=== PATIENT | male | born 1960 | race Caucasian/White ===

== ENCOUNTER 2021-03-12 14:18 | Inpatient (IN) ==
[2021-03-12] MEDS ORDERED: dexAMETHasone**PF** 10 MG/ML VIAL IV ONE (14:24)
[2021-03-12] MEDS ORDERED: RACEPINEPHRINE 2.25% NEBU SOLN 0.5 ML VIAL NEB STA (14:24)
[2021-03-12] MEDS ORDERED: SODIUM CHLORIDE 0.9% 500 ML IV ONE (14:24)
[2021-03-12] MEDS ORDERED: RAPID SEQUENCE INDUCTION BAG ONE (14:31)
[2021-03-12] MEDS ORDERED: GLYCOPYRROLATE 0.2 MG/ML VIAL ONE ×2 (14:34→17:27)
[2021-03-12] MEDS ORDERED: LIDOCAINE 4% INH SOLN 4 ML BTL ONE ×2 (14:34→14:46)
[2021-03-12 14:50] LABS: Basophils # (auto) 0.01 K/uL (0-0.2); Basophils % (auto) 0.1 %; Eosinophils # (auto) 0.04 K/uL (0-0.5); Eosinophils % (auto) 0.4 %; Hematocrit (blood only) 38.4 % (42-52); Hemoglobin 13.8 g/dL (14.0-18.0); Immature Granulocytes # (auto) 0.01 K/uL (0.00-0.02); Immature Granulocytes % (auto) 0.1 %; Lymphocytes # (auto) 1.08 K/uL (1.2-3.4); Lymphocytes % (auto) 9.6 %; Mean Corpuscular Hemoglobin 30.6 pg (25-34); Mean Corpuscular Hgb Conc 35.9 g/dL (32-36); Mean Corpuscular Volume 85.1 fL (80-100); Mean Platelet Volume 10.3 fL (7.4-10.4); Monocytes # (auto) 0.66 K/uL (0.11-0.59); Monocytes % (auto) 5.9 %; Neutrophils # (auto) 9.42 K/uL (1.4-6.5); Neutrophils % (auto) 83.9 %; Platelet Count 203 K/uL (130-400); RDW Coefficient of Variation 13.8 % (11.5-14.5); Red Blood Count 4.51 M/uL (4.7-6.1); White Blood Count 11.22 K/uL (4.8-10.8)
--- NOTE | 2021-03-12 14:53 | XRay Report ---
SINGLE VIEW CHEST CLINICAL HISTORY: Atypical chest pain. FINDINGS: An AP, portable, upright chest radiograph is obtained. No prior studies are available for c omparison at the time of dictation. The cardiomediastinal silhouette is unremarkable. Airspace opaci ties are noted at the left lung base. A 9 mm indeterminate nodular density projects over the right mi dlung. No large pleural effusion or pneumothorax is seen. The skeletal structures are osteopenic. Fus ion hardware is noted in the lower cervical spine. There is chronic posttraumatic deformity of the ri ght clavicle as well as several healed right-sided rib fractures. IMPRESSION: 1. Airspace opacities at the left lung base are nonspecific and could represent scarring/atelectasis versus a mild infectious/inflammatory pneumonitis. Clinical correlation will be required. 2. A 9 mm nodular density projects over the right midlung and may be artifactual. Follow-up with a de dicated PA and lateral examination is recommended for further assessment. ACT 112: Negative or not required by law. Electronically signed by: Amor Mccarthy M.D. 03/12/2021 2:51 PM
[2021-03-12] MEDS ORDERED: PROPOFOL IV EMULSION 10 MG/ML 20 ML VIAL IV ONE ×2 (14:54→15:50)
[2021-03-12 15:00] LABS: INR 1.2 (0.9-1.1)
[2021-03-12] MEDS ORDERED: LIDOCAINE 5% OINT 30 GM TUBE ONE (15:00)
--- NOTE | 2021-03-12 15:02 | XRay Report ---
XR soft tissue neck CLINICAL HISTORY: acute stridor, known 4cm subglottic mass COMPARISON STUDY: No previous studies for comparison. FINDINGS: Postoperative findings and extensive multilevel degenerative changes within visualized port ions of the spine are incidentally noted. Epiglottis is normal. There is soft tissue fullness within the glottic and supraglottic region. This is suboptimally assessed by radiography but measures approx imately 5.1 cm in craniocaudal extension. This may reflect the known mass. IMPRESSION: Fullness within the region of the glottis with possible supraglottic and infraglottic ext ension, suboptimally assessed by radiography. This may reflect the known mass. Findings discussed wit cee Odonnell at time of dictation. ACT 112: Negative or not required by law. Electronically signed by: Toby Ryan M.D. 03/12/2021 3:01 PM
[2021-03-12 15:17] LABS: Troponin I < 0.03 ng/ml (0-0.04)
[2021-03-12] MEDS ORDERED: OXYMETAZOLINE 0.05% 30 ML BTL ONE (15:25)
[2021-03-12 15:33] LABS: Alanine Aminotransferase 20 U/L (7-52); Albumin Globulin Ratio 1.3 (0.9-2); Albumin Level 3.7 gm/dl (3.4-5.0); Alkaline Phosphatase 80 U/L (34-104); Anion Gap 9 (3-11); Aspartate Aminotransferase 25 U/L (13-39); BUN Creatinine Ratio 21.4 (10-20); Bilirubin,Total 0.5 mg/dl (0.2-1.0); Blood Urea Nitrogen 12 mg/dl (6-23); Calcium 8.9 mg/dl (8.5-10.1); Carbon Dioxide 30 mmol/L (21-32); Chloride 77 mmol/L (98-107); Creatinine Clr Calc Pharmacy 140.3 ml/min; Est GFR (African American) 130.3 ml/min; Est GFR (Non-African American) 112.4 ml/min; Globulin 2.8 gm/dl (2.5-4.0); Glucose 116 mg/dl (70-99(Fasting)); Lipase 17 U/L (11-82); Potassium 2.9 mmol/L (3.5-5.1); Total Protein 6.5 gm/dl (6.0-8.3)
[2021-03-12] MEDS ORDERED: BENZOCAINE/TETRACAIN/BUTAM 50 APPLN/5 GM CAN EXT ONE (15:41)
[2021-03-12] MEDS ORDERED: DEXAMETHASONE SOD INJ 10 MG/ML VIAL IV ONE (15:45)
--- NOTE | 2021-03-12 15:45 | Anesthesiology Progress Note ---
Date of Service March 12, 2021 Subjective I was called to the ER to evaluate the patient for a potential intubation. Upon arriving, the patient was visibly stridorous. The patient has a history of supraglottic/subglottic mass. The patient's vital signs were stable. The patient was able to answer questions appropriately, but he did have some difficulty breathing. I spoke to the patient about the potential intubation, but I told him I would abort if his airway was too difficult. The patient was given a lidocaine nebulizer and his airway was tropicalized with a cetacaine spray. The patient was given 0.2 mg of glycopyrrolate and 3mg of midazolam IV. The patient was breathing adequately during the procedure. I passed a fiberoptic scope without difficulty. Upon evaluation of the glottis, there was a pinhole opening of his glottis. It was at this time that I aborted the intubation attempt. I spoke with Dr. Ruiz, and I discussed the situation with him. The patient remained stridorous, but the patient was otherwise stable. The plan is for an awake tracheostomy. Physical Exam Vital Signs: Last Vital Signs Pulse 106 H 03/12/21 15:31 Resp 20 03/12/21 15:31 BP 130/95 03/12/21 15:31 Pulse Ox 99 03/12/21 15:31
[2021-03-12] MEDS ORDERED: LIDOCAINE 2%/EPINEPHRINE 1:100,000 20ML ONE (15:49)
[2021-03-12] MEDS ORDERED: fentaNYL citrate 100 MCG/2 ML VIAL ONE (15:50)
[2021-03-12] MEDS ORDERED: LIDOCAINE 2% LOCAL 50 ML VIAL ONE (15:50)
[2021-03-12] MEDS ORDERED: LIDOCAINE 2% 2 ML VIAL/AMP(20MG/ML) INFIL ONE (15:50)
[2021-03-12] MEDS ORDERED: MIDAZOLAM HCL 1 MG/ML 2ML VIAL ONE (15:50)
[2021-03-12] MEDS ORDERED: ePHEDrine sulfate 50 MG/ML AMP IV PRN (16:00)
[2021-03-12] MEDS ORDERED: fentaNYL citrate 100 MCG/2 ML VIAL IV PRN (16:00)
[2021-03-12] MEDS ORDERED: ATROPINE SULFATE 0.1 MG/ML 10ML SYR IV PRN (16:00)
--- NOTE | 2021-03-12 16:02 | History & Physical Report ---
Date of Service March 12, 2021 Assessment & Plan (1) Supraglottic mass: Plan: Per report, has a large, known supraglottic mass with recommendation of elective tracheostomy in January. - Patient going to OR emergently (2) Hyponatremia: Plan: Unknown baseline, but likely some level of chronicity given his inability to swallow and cancer. - Urine osms - Correct with assumption this is chronic. Per report, patient had fairly normal mentation prior to Versed for procedures, and I did not hear of any indication of seizure. (3) DVT prophylaxis: Plan: SCDs - Heparin per ICU team once surgery is complete History of Present Illness Primary Care Provider: [facility] 60yo M w/ unknown hx who presents with stridor. History is obtained from the ER physician as the patient underwent a fiberoptic look at his airway and received Versed for it. With the sedation and his difficulty breathing, no hx is possible from the patient. Per ER physician, the patient has been followed at the [facility] for a supraglottic mass of unknown type. Presumed to be malignancy. Reportedly, he was recommended to undergo elective tracheostomy in January, but surgery was either declined or delayed. He presents today with increasing difficulty breathing and was found to be stridorous. Anesthesiology used fiberoptic scope to look at his airway, but the airway was down to a "pinhole," and anesthesiology did not feel comfortable intubating outside of the OR with ENT present in case emergency tracheostomy needed to be placed. He is being taken to the OR at this time. 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 Unknown family medical history Social History Smoking Status: Current every day smoker Preferred Language: Citizen Of [place] Feels Safe at Home: Yes Review of Systems Review of Systems: Unobtainable due to cognitive status and Unobtainable due to reduced consciousness Physical Exam Constitutional: + acute distress and + disheveled Eyes: EOM intact bilaterally; no conjunctival abnormality ENMT: external ear and nose normal, oropharynx normal Neck: trachea midline, no thyromegaly normal visual inspection Respiratory: + respiratory distress, + tachypneic and + stridor Cardiovascular: Rate/Rhythm: regular rhythm and + tachycardic Heart Sounds: normal S1 and normal S2 Gastrointestinal (Abdomen): Inspection/Auscultation: abdomen normal to inspection; abdomen not distended Musculoskeletal: Head/Neck/Chest: normocephalic and head atraumatic Skin: no rashes, warm and dry Neurologic: moves all extremities and awake Psychiatric: Orientation: cooperative; + not alert Results & Data Results & Data ([facility]) Vital Signs (Past 12 Hours) Vital Signs Pulse Pulse Resp BP BP Pulse Ox 03/12/21 15:45 110 H 17 174/105 H 99 03/12/21 15:31 106 H 20 130/95 99 03/12/21 15:21 115 H 24 182/88 H 99 03/12/21 15:10 95 H 26 H 179/102 H 99 03/12/21 15:05 94 H 30 H 97 03/12/21 15:00 94 H 36 H 179/102 H 94 03/12/21 14:45 94 H 25 H 180/101 H 98 03/12/21 14:40 96 H 30 H 98 03/12/21 14:30 98 H 24 158/109 H 97 Code Status & VTE Plan VTE Prophylaxis Plan VTE Prophylaxis will be ordered: Yes PG Care Time/CCT Total # of Minutes Spent Total Time Spent with Patient: Total time spent is greater than 50% in coordination of care (as documented) at patient's floor/unit and/or counseling patient: Coding Level of Care Code 60379 Initial Inpt Care Lvl 3 Diagnoses Supraglottic mass J38.7 Hyponatremia E87.1 DVT prophylaxis Z29.9
--- NOTE | 2021-03-12 16:03 | Anesthesiology Consultation ---
Date of Service March 12, 2021 Assessment & Plan Chart Review Chart Review: Acceptable Risk for Surgery Consults Requested none ASA [id number] Proposed Anesthesia Anesthesia Type: MAC Risk / Benefits Reviewed With: PT / POA / Parent / Guardian, Accepts Plan and Informed Consent Obtained History Surgery Operation Date: 03/12/21 12:30 Proposed Procedures p Emergency Trach Insertion - Zuleika Ruiz MD Height/Weight Height: 5 ft 9 in Weight: 80 kg Allergies Allergy/AdvReac Type Severity Reaction Status Date / Time No Known Allergies Allergy Verified 04/01/02 18:24 NPO Date Last Intake of Fluids: 03/12/21 Time Last Intake of Fluids: 13:30 Last Intake of Fluids Comment: Protein Shake Past Medical History Medical History Unknown family medical history Exercise / Class Metabolic Activity II 4-5 Yardwork/Stairs/Walk up hill Past Anesthesia History No Hx of Anesthesia Complications and No Family Hx of Anesthesia Complications History of PONV No Hx of PONV and No Hx of Motion Sickness Social History Smoking Status: Current every day smoker Physical Exam Vital Signs Last Vital Signs Pulse 110 H 03/12/21 15:45 Resp 17 03/12/21 15:45 BP 174/105 H 03/12/21 15:45 Pulse Ox 99 03/12/21 15:45 Constitutional + acute distress ENMT Mouth: no dentition abnormality Thyromental Distance: > or= 3.5 Finger Breadths Mallampati Class: II Neck normal visual inspection Respiratory + respiratory distress Auscultation: + rhonchi Cardiovascular Rate/Rhythm: regular rate and regular rhythm Testing Laboratory Results 03/12/21 14:23 03/12/21 14:23 PT 12.0 Seconds (9.0-12.0) 03/12/21 14:23 INR 1.2 (0.9-1.1) H 03/12/21 14:23 Blood Type A Positive 03/12/21 14:47 Antibody Screen NEGATIVE 03/12/21 14:47 Electrocardiogram Date: 03/12/21 Normal sinus rhythm, rate 97 bpm Possible Left atrial enlargement T wave abnormality, consider anterior ischemia Prolonged QT Abnormal ECG No previous ECGs available Chest X-Ray Date: 03/12/21 IMPRESSION: 1. Airspace opacities at the left lung base are nonspecific and could represent scarring/atelectasis versus a mild infectious/inflammatory pneumonitis. Clinical correlation will be required. 2. A 9 mm nodular density projects over the right midlung and may be artifactual. Follow-up with a dedicated PA and lateral examination is recommend ed for further assessment. Other Testing XR soft tissue neck 03/12/21 IMPRESSION: Fullness within the region of the glottis with possible supraglottic and infraglottic extension, suboptimally assessed by radiography. This may reflect the known mass. Findings discussed with Dr. Odonnell at time of dictation.
--- NOTE | 2021-03-12 16:05 | Emergency Department Note ---
Impression & Plan Acute airway obstruction, Supraglottic mass, Hyponatremia, Stridor, Hypokalemia ED Provider Note NAME: OSCAR LOBO AGE: 60 SEX: M ARRIVES VIA: Ambulance INFORMANT: Patient, Marjorie Wilson, ex-, 1st contact [phone] ED PROVIDER(S): Gary Odonnell MD CHIEF COMPLAINT: Shortness of breath, laryngeal mass. 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 Per report the patient had O2 saturation 88% on room air improving to the upper 90s with 2 L nasal cannula. The patient reports that he has not had severity of stridor such as this in the past. The patient's ex- I spoke with on the phone with the patient's permission reports he may have had some intermittent "noisy breathing" but nothing as severe as was described today. 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 He is on Xarelto for history of blood clots but stopped this 2 days ago. I was ultimately able to discuss the patient's case with the local [place] clinic, midlevel provider who was able to access his imaging from January and she read the i mpression which described supraglottic mass, with evidence of extension into the thyroid cartilage. CT report was to be faxed and receipt was pending. She further elaborated that his specialist in [place] were attempting to have the patient come out for some time for his elective tracheostomy but this had been delayed. The patient had a biopsy confirming squamous cell carcinoma. She confirms that the patient is on Xarelto for history of PE/DVT. Upon arrival the patient was in acute respiratory distress with severe stridor and increased work of breathing with vital signs stable with heart rate in the 100s and blood pressure 170/100s. Patient was immediately treated with dexamethasone and racemic epinephrine. Anesthesia was immediately contacted. There is no ENT on-call today. Appreciate assistance by Anesthesia, Dr. Aponte who was at the bedside. Agrees that the patient needs emergent tracheostomy. Given concern for subglottic extension into the thyroid cartilage and possibly at the level of the cricothyroid membrane there is concern for attempting cricothyrotomy given no updated imaging of his mass. Thus, we did contact Dr. Ruiz, who was not on-call but case was reviewed with him and he agreed to come to the hospital as soon as he able given he had a full clinic schedule but could arrive within the next hour and a half and to update him if there is any acute decompensation. Given the patient was semi-stable, mentating normally and did not appear to be tiring he was monitored closely. Dr. Aponte did review risks and benefits for awake intubation/direct visualization with the understanding that if findings were not be amenable to intubation then this would be deferred. See Dr. Aponte's documentation for procedure details. Direct visualization did demonstrate the patient's tracheal mass which was present at the retinoids but extending distally. Airway appeared limited to a pinhole and so intubation was deferred. Dr. Ruiz was updated and agreed to come immediately to take the patient to the OR for emergent awake tracheostomy. Appreciate assistance. Chest x-ray was performed and demonstrates nonspecific airspace opacities of left lung base. Soft tissue x-ray of the neck demonstrates fullness within the region of the glottis with possible supraglottic and infraglottic extension consistent with the patient's known history, though further characterization is limited by plain film. Film was reviewed with radiology, Dr. Ryan. The patient received 500 of normal saline in addition to 10 mg x 2 (20mg total) of Decadron and racemic epinephrine. See further documentation per anesthesia for medications for laryngoscopy. WBC 11.2K nonspecific. H/H 13.8/30.4 without prior values for comparison. Platelets within normal limits. Chemistry without metabolic acidosis. Sodium was 116 with normal glucose however the patient is mentating normally. Potassi um 2.9 in the setting of tachypnea. LFTs unremarkable. Troponin negative/undetectable. Lipase was not elevated. COVID-19, RNA, KIMBERLI test was negative. Acute treatment for hyponatremia was deferred given the patient is mentating normally and the patient's critical airway was the priority pathology at this time. Case was d/w Dr. Rodríguez, [facility] hospitalist who will evaluate the patient for admission following OR. Case was also d/w Dr. Coats, ICU channel marketing specialist who will manage the patient following the OR. Triage Nursing notes reviewed and agree them. Prior medical records reviewed Vital Signs: reviewed and remarkable for tachycardia/tachypnea. Differential diagnosis: Reactive airway disease, pneumonia, pneumothorax, COPD, CHF, infections, cardiac ischemia, pulmonary embolism, musculoskeletal, gastrointestinal, as well as other pathologies. ER treatment provided: See below. Diagnostics interpreted by me: ECG: Normal sinus rhythm, 97 bpm, no ectopy, T wave abnormality, no overt ST elevation or depression, QTC 561, QRS 96. Artifact present. Cardiac Monitoring: An order for continuous cardiac monitoring was placed and demonstrated normal sinus rhythm, 97 bpm, no ectopy. Laboratory studies: See below Imaging studies: See below Consultation(s): Anesthesia, Dr. Aponte. ENT, Dr. Ruiz. [facility] hospitalist, Dr. Rodríguez. ICU channel marketing specialist, Dr. Coats. 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 Per report the patient had O2 saturation 88% on room air improving to the upper 90s with 2 L nasal cannula. The patient reports that he has not had severity of stridor such as this in the past. The patient's ex- I spoke with on the phone with the patient's permission reports he may have had some intermittent "noisy breathing" but nothing as severe as was described today. Unfortunately we did not have access to the patient's prior records but he did remember that he was told he had a 4- 1/2 cm subglotic mass. He is on Xarelto for history of blood clots but stopped this 2 days ago. I was ultimately able to discuss the patient's case with the local [facility], midlevel provider who was able to access his imaging from January and she read the impression which described supraglottic mass, with evidence of extension into the thyroid cartilage. CT report was to be faxed and receipt was pending. She further elaborated that his specialist in [place] were attempting to have the patient come out for some time for his elective tracheostomy but this had been delayed. The patient had a biopsy confirming squamous cell carcinoma. She confirms that the patient is on Xarelto for history of PE/DVT. ROS: See above HPI for pertinent positives & negatives. A total of 10 systems reviewed and were otherwise negative. PAST MEDICAL HISTORY:See Below PAST SURGICAL HISTORY:See Below FAMILY HISTORY:See Below SOCIAL HISTORY:See Below HOME MEDICATIONS:See Below ALLERGIES:See Below VITALS:See Below PHYSICAL EXAMINATION: GENERAL: Awake, alert, uncomfortable-appearing, in severe respiratory distress HENT: Normocephalic, atraumatic. Oropharynx with dry mucous membranes and otherwise unremarkable. EYES: Normal conjunctiva. Sclera non-icteric. NECK: Supple. No nuchal rigidity. FROM. No JVD. Severe inspiratory stridor. RESPIRATORY: Relatively clear to auscultation. Increased WOB with accessory muscle use. CARDIAC: Tachycardic rate, normal rhythm. Extremities warm and well perfused. Pulses equal. ABDOMEN: Soft, non-distended. No tenderness to palpation. No rebound or guarding. No masses. RECTAL: Deferred. MUSCULOSKELETAL: Chest examination reveals no tenderness. The back is symmetrical on inspection without obvious abnormality. There is no CVA tenderness to palpation. No joint edema. LOWER EXTREMITIES: Calves are equal size bilaterally and non-tender. No edema. No discoloration. NEURO: Normal sensorium. No sensory or motor deficits noted. SKIN: No rash or jaundice noted. ED COURSE: Critical Care: I have personally spent greater than 95 minutes of critical care time in the direct management of this patient. This includes bedside care, interpretation of diagnostic studies, and testing, discussion with consultants, patient, and family members, and other required patient management activities. This 95 minutes is in excess of all separately billable procedures. 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 Unknown family medical history Family History Other Family history non-contributory Social History Smoking Status: Current every day smoker Cigarettes Per Day: unknown; Preferred Language: Macedonian Communication Ability: Unable Performance Improvement Coordinator Required: No Current Living Situation Comment: unknown Feels Safe at Home: Yes Assistive Devices: Oxygen - Continuous Allergies Allergies Allergy/AdvReac Type Severity Reaction Status Date / Time No Known Allergies Allergy Verified 04/01/02 18:24 Results & Data (ED) Vital Signs Vital Signs - 24 hr 03/12/21 14:30 03/12/21 14:40 03/12/21 14:45 Pulse Rate 98 H 94 H Pulse Rate [Finger] 96 H Pulse Rate from SpO2 Sensor 96 H 93 H Pulse Rhythm [Finger] Pulse Strength [Finger] Respiratory Rate 24 30 H 25 H Respiratory Effort / Characteristics Spontaneous Labored Spontaneous Labored Respiratory Depth Deep Blood Pressure 158/109 H 180/101 H Blood Pressure [Left Arm] Blood Pressure Mean 125 127 Blood Pressure Mean [Left Arm] Blood Pressure Position Sitting Pulse Oximetry 97 98 98 Oxygen Delivery Method Nasal Cannula Nasal Cannula Oxymask Oxygen Flow Rate 4 4 15 Sepsis New/Unexplained Change in Mental Status N/A Sepsis Action Taken by Nursing No Action Required 03/12/21 15:00 03/12/21 15:05 03/12/21 15:10 Pulse Rate 94 H 94 H 94 H Pulse Rate [Finger] 94 H 95 H Pulse Rate from SpO2 Sensor 97 H 94 H 96 H Pulse Rhythm [Finger] Pulse Strength [Finger] Respiratory Rate 36 H 24 26 H Respiratory Effort / Characteristics Spontaneous Labored Respiratory Depth Blood Pressure 179/102 H Blood Pressure [Left Arm] 179/102 H Blood Pressure Mean 127 Blood Pressure Mean [Left Arm] 127 Blood Pressure Position Pulse Oximetry 94 97 99 Oxygen Delivery Method Oxymask Oxymask Nebulizer Oxygen Flow Rate 15 15 Sepsis New/Unexplained Change in Mental Status Sepsis Action Taken by Nursing 03/12/21 15:15 03/12/21 15:20 03/12/21 15:21 Pulse Rate 96 H 113 H Pulse Rate [Finger] 115 H Pulse Rate from SpO2 Sensor 96 H 114 H Pulse Rhythm [Finger] Pulse Strength [Finger] Respiratory Rate 40 H 24 24 Respiratory Effort / Characteristics Respiratory Depth Blood Pressure 182/88 H Blood Pressure [Left Arm] 182/88 H Blood Pressure Mean 119 Blood Pressure Mean [Left Arm] 119 Blood Pressure Position Pulse Oximetry 97 99 99 Oxygen Delivery Method Nasal Cannula Oxygen Flow Rate 10 Sepsis New/Unexplained Change in Mental Status Sepsis Action Taken by Nursing 03/12/21 15:25 03/12/21 15:30 03/12/21 15:31 Pulse Rate 122 H 107 H Pulse Rate [Finger] 106 H Pulse Rate from SpO2 Sensor 122 H 107 H Pulse Rhythm [Finger] Pulse Strength [Finger] Respiratory Rate 31 H 22 20 Respiratory Effort / Characteristics Respiratory Depth Blood Pressure 129/107 H Blood Pressure [Left Arm] 130/95 Blood Pressure Mean 114 Blood Pressure Mean [Left Arm] 106 Blood Pressure Position Pulse Oximetry 94 98 99 Oxygen Delivery Method Nasal Cannula Oxygen Flow Rate 10 Sepsis New/Unexplained Change in Mental Status Sepsis Action Taken by Nursing 03/12/21 15:32 03/12/21 15:35 03/12/21 15:40 Pulse Rate 104 H 103 H 118 H Pulse Rate [Finger] Pulse Rate from SpO2 Sensor 100 H 104 H Pulse Rhythm [Finger] Pulse Strength [Finger] Respiratory Rate 21 20 19 Respiratory Effort / Characteristics Respiratory Depth Blood Pressure 130/95 Blood Pressure [Left Arm] Blood Pressure Mean 106 Blood Pressure Mean [Left Arm] Blood Pressure Position Pulse Oximetry 96 99 Oxygen Delivery Method Oxygen Flow Rate Sepsis New/Unexplained Change in Mental Status Sepsis Action Taken by Nursing 03/12/21 15:45 Pulse Rate Pulse Rate [Finger] 110 H Pulse Rate from SpO2 Sensor Pulse Rhythm [Finger] Regular Pulse Strength [Finger] Normal Respiratory Rate 17 Respiratory Effort / Characteristics Respiratory Depth Blood Pressure Blood Pressure [Left Arm] 174/105 H Blood Pressure Mean Blood Pressure Mean [Left Arm] 128 Blood Pressure Position Pulse Oximetry 99 Oxygen Delivery Method Oxymask Oxygen Flow Rate 10 Sepsis New/Unexplained Change in Mental Status Sepsis Action Taken by Nursing Laboratory Data Attestation: I reviewed the patient's lab results. Result diagrams: 03/12/21 18:26 03/12/21 18:24 Lab Results 03/12/21 03/12/21 03/12/21 Range/Units 14:23 14:23 14:23 WBC 11.22 H (4.8-10.8) K/uL RBC 4.51 L (4.7-6.1) M/uL Hgb 13.8 L (14.0-18.0) g/dL Hct 38.4 L (42-52) % MCV 85.1 (80-100) fL MCH 30.6 (25-34) pg MCHC 35.9 (32-36) g/dL RDW Std Deviation 43.0 (36.4-46.3) fL RDW Coeff of Davie 13.8 (11.5-14.5) % Plt Count 203 (130-400) K/uL MPV 10.3 (7.4-10.4) fL Immature Gran % (Auto) 0.1 % Neut % (Auto) 83.9 % Lymph % (Auto) 9.6 % Blanco % (Auto) 5.9 % Eos % (Auto) 0.4 % Baso % (Auto) 0.1 % Neut # (Auto) 9.42 H (1.4-6.5) K/uL Lymph # (Auto) 1.08 L (1.2-3.4) K/uL Blanco # (Auto) 0.66 H (0.11-0.59) K/uL Eos # (Auto) 0.04 (0-0.5) K/uL Baso # (Auto) 0.01 (0-0.2) K/uL Immature Gran # (Auto) 0.01 (0.00-0.02) K/uL PT 12.0 (9.0-12.0) Seconds INR 1.2 H (0.9-1.1) Sodium 116 L* (136-145) mmol/L Potassium 2.9 L (3.5-5.1) mmol/L Chloride 77 L (98-107) mmol/L Carbon Dioxide 30 (21-32) mmol/L Anion Gap 9 (3-11) BUN 12 (6-23) mg/dl Creatinine 0.56 L (0.6-1.4) mg/dl Est Cr Clr Drug Dosing 140.3 ml/min Est GFR ( Amer) 130.3 ml/min Est GFR (Non-Af Amer) 112.4 ml/min BUN/Creatinine Ratio 21.4 H (10-20) Glucose 116 H (70-99(Fasting)) mg/dl Calcium 8.9 (8.5-10.1) mg/dl Total Bilirubin 0.5 (0.2-1.0) mg/dl AST 25 (13-39) U/L ALT 20 (7-52) U/L Alkaline Phosphatase 80 (34-104) U/L Troponin I < 0.03 (0-0.04) ng/ml Total Protein 6.5 (6.0-8.3) gm/dl Albumin 3.7 (3.4-5.0) gm/dl Globulin 2.8 (2.5-4.0) gm/dl Albumin/Globulin Ratio 1.3 (0.9-2) Lipase 17 (11-82) U/L SARS-CoV-2, RNA, NAAT (NEGATIVE) Blood Type Antibody Screen 03/12/21 03/12/21 Range/Units 14:40 14:47 WBC (4.8-10.8) K/uL RBC (4.7-6.1) M/uL Hgb (14.0-18.0) g/dL Hct (42-52) % MCV (80-100) fL MCH (25-34) pg MCHC (32-36) g/dL RDW Std Deviation (36.4-46.3) fL RDW Coeff of Davie (11.5-14.5) % Plt Count (130-400) K/uL MPV (7.4-10.4) fL Immature Gran % (Auto) % Neut % (Auto) % Lymph % (Auto) % Blanco % (Auto) % Eos % (Auto) % Baso % (Auto) % Neut # (Auto) (1.4-6.5) K/uL Lymph # (Auto) (1.2-3.4) K/uL Blanco # (Auto) (0.11-0.59) K/uL Eos # (Auto) (0-0.5) K/uL Baso # (Auto) (0-0.2) K/uL Immature Gran # (Auto) (0.00-0.02) K/uL PT (9.0-12.0) Seconds INR (0.9-1.1) Sodium (136-145) mmol/L Potassium (3.5-5.1) mmol/L Chloride (98-107) mmol/L Carbon Dioxide (21-32) mmol/L Anion Gap (3-11) BUN (6-23) mg/dl Creatinine (0.6-1.4) mg/dl Est Cr Clr Drug Dosing ml/min Est GFR ( Amer) ml/min Est GFR (Non-Af Amer) ml/min BUN/Creatinine Ratio (10-20) Glucose (70-99(Fasting)) mg/dl Calcium (8.5-10.1) mg/dl Total Bilirubin (0.2-1.0) mg/dl AST (13-39) U/L ALT (7-52) U/L Alkaline Phosphatase (34-104) U/L Troponin I (0-0.04) ng/ml Total Protein (6.0-8.3) gm/dl Albumin (3.4-5.0) gm/dl Globulin (2.5-4.0) gm/dl Albumin/Globulin Ratio (0.9-2) Lipase (11-82) U/L SARS-CoV-2, RNA, NAAT NEGATIVE (NEGATIVE) Blood Type A Positive Antibody Screen NEGATIVE Administered Medications Discontinued Medications Dexamethasone (Dexamethasone Sod Inj 10 Mg/Ml Vial) 10 mg IV ONE ONE Stop: 03/12/21 15:46 Last Admin: 03/12/21 15:30 Dose: 10 mg Documented by: [id number] Dexamethasone Sodium Phosphate (DexamethasonePf 10 Mg/Ml Vial) 10 mg IV NOW ONE Stop: 03/12/21 14:25 Last Admin: 03/12/21 14:29 Dose: 10 mg Documented by: [id number] Epinephrine (Racepinephrine 2.25% Nebu Soln 0.5 Ml Vial) 0.5 ml NEB NOW STA Stop: 03/12/21 14:25 Last Admin: 03/12/21 15:05 Dose: 0.5 ml Documented by: [id number] Glycopyrrolate (Glycopyrrolate 0.2 Mg/Ml Vial) Confirm Administered Dose 0.4 mg .ROUTE .STK-MED ONE Stop: 03/12/21 14:35 Last Admin: 03/12/21 18:17 Dose: Not Given Documented by: [id number] Sodium Chloride (Nss) 500 mls @ 999 mls/hr IV .Q31M ONE Stop: 03/12/21 14:54 Last Infusion: 03/12/21 15:02 Dose: 0 mls/hr Documented by: [id number] Admin: 03/12/21 14:34 Dose: 999 mls/hr Documented by: [id number] Cefazolin Sodium (Ancef 2000mg) 2,000 mg in 15 mls @ 3.75 mls/min IV ONCE ONE Stop: 03/12/21 16:44 Last Admin: 03/12/21 16:36 Dose: 3.75 mls/min Documented by: [id number] Lidocaine HCl (Lidocaine 4% Inh Soln 4 Ml Btl) Confirm Administered Dose 4 ml .ROUTE .[facility] ONE Stop: 03/12/21 14:35 Last Admin: 03/12/21 18:17 Dose: Not Given Documented by: [id number] Lidocaine HCl (Lidocaine 4% Inh Soln 4 Ml Btl) Confirm Administered Dose 4 ml .ROUTE .[facility] ONE Stop: 03/12/21 14:47 Last Admin: 03/12/21 18:17 Dose: Not Given Documented by: [id number] Lidocaine HCl (Lidocaine 2% Local 50 Ml Vial) Confirm Administered Dose 50 ml .ROUTE .[facility] ONE Stop: 03/12/21 15:51 Last Admin: 03/12/21 17:13 Dose: Not Given Documented by: [id number] Lidocaine/Epinephrine (Lidocaine 2%/Epinephrine 1:100,000 20ml) Confirm Administered Dose 20 ml .ROUTE .[facility] ONE Stop: 03/12/21 15:50 Last Admin: 03/12/21 17:13 Dose: 15 ml Documented by: [id number] Miscellaneous (Rapid Sequence Induction Bag) Confirm Administered Dose 1 ea .ROUTE .[facility] ONE Stop: 03/12/21 14:32 Last Admin: 03/12/21 18:17 Dose: Not Given Documented by: [id number] Oxymetazoline HCl (Oxymetazoline 0.05% 30 Ml Btl) Confirm Administered Dose 150 sprays .ROUTE .[facility] ONE Stop: 03/12/21 15:26 Last Admin: 03/12/21 18:17 Dose: Not Given Documented by: [id number] Propofol (Propofol Iv Emulsion 10 Mg/Ml 20 Ml Vial) Confirm Administered Dose 200 mg IV .[facility] ONE Stop: 03/12/21 14:55 Last Admin: 03/12/21 18:17 Dose: Not Given Documented by: [id number] Imaging Data Radiologist's Impression: Chest X-Ray 03/12/21 14:25 SINGLE VIEW CHEST CLINICAL HISTORY: Atypical chest pain. FINDINGS: An AP, portable, upright chest radiograph is obtained. No prior studies are available for comparison at the time of dictation. The cardiomediastinal silhouette is unremarkable. Airspace opacities are noted at the left lung base. A 9 mm indeterminate nodular density projects over the right midlung. No large pleural effusion or pneumothorax is seen. The skeletal structures are osteopenic. Fusion hardware is noted in the lower cervical spine. There is chronic posttraumatic deformity of the right clavicle as well as several healed right-sided rib fractures. IMPRESSION: 1. Airspace opacities at the left lung base are nonspecific and could represent scarring/atelectasis versus a mild infectious/inflammatory pneumonitis. Clinical correlation will be required. 2. A 9 mm nodular density projects over the right midlung and may be artifac tual. Follow-up with a dedicated PA and lateral examination is recommended for further assessment. ACT 112: Negative or not required by law. Electronically signed by: Amor Mccarthy M.D. 03/12/2021 2:51 PM Soft Tissue Neck X-Ray 03/12/21 14:36 XR soft tissue neck CLINICAL HISTORY: acute stridor, known 4cm subglottic mass COMPARISON STUDY: No previous studies for comparison. FINDINGS: Postoperative findings and extensive multilevel degenerative changes within visualized portions of the spine are incidentally noted. Epiglottis is normal. There is soft tissue fullness within the glottic and supraglottic region. This is suboptimally assessed by radiography but measures approximately 5.1 cm in craniocaudal extension. This may reflect the known mass. IMPRESSION: Fullness within the region of the glottis with possible supraglottic and infraglottic extension, suboptimally assessed by radiography. This may reflect the known mass. Findings discussed with Dr. Odonnell at time of dictation. ACT 112: Negative or not required by law. Electronically signed by: Toby Ryan M.D. 03/12/2021 3:01 PM Discharge Plan Visit Data Chief Complaint: Respiratory Problems ED Provider: Gary Odonnell Discharge Problem: Acute airway obstruction, Supraglottic mass, Hyponatremia, Stridor, Hypokalemia Patient Disposition: Admitted As Inpatient Discharge Instructions Interventions: ED Discharge Assessment Last Done: 03/12/21 15:50
--- NOTE | 2021-03-12 16:29 | History & Physical Report ---
Date of Service March 12, 2021 Assessment & Plan (1) Supraglottic mass: Plan: Emergency tracheostomy under local, then direct laryngoscopy. History of Present Illness Chief Complaint: Stridor. 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 Primary Care Provider: [facility] Stridor, for emergency tracheostomy Allergies Allergy/AdvReac Type Severity Reaction Status Date / Time No Known Allergies Allergy Verified 04/01/02 18:24 Past Med/Surg History Medical History Unknown family medical history Social History Smoking Status: Current every day smoker Preferred Language: Danish Feels Safe at Home: Yes Physical Exam Constitutional: + acute distress (Stridor), + cachectic and + frail appearing Eyes: PERRL, conjunctivae normal, anicteric sclerae ENMT: external ear and nose normal, oropharynx normal Respiratory: Stridor Cardiovascular: RRR, no murmur, no edema Results & Data Results & Data ([facility]) Vital Signs (Past 12 Hours) Vital Signs Pulse Pulse Resp BP BP Pulse Ox 03/12/21 15:45 110 H 17 174/105 H 99 03/12/21 15:31 106 H 20 130/95 99 03/12/21 15:21 115 H 24 182/88 H 99 03/12/21 15:10 95 H 26 H 179/102 H 99 03/12/21 15:05 94 H 30 H 97 03/12/21 15:00 94 H 36 H 179/102 H 94 03/12/21 14:45 94 H 25 H 180/101 H 98 03/12/21 14:40 96 H 30 H 98 03/12/21 14:30 98 H 24 158/109 H 97 Code Status & VTE Plan VTE Prophylaxis Plan VTE Prophylaxis will be ordered: Yes PG Care Time/CCT Total # of Minutes Spent Total Time Spent with Patient: Total time spent is greater than 50% in coordination of care (as documented) at patient's floor/unit and/or counseling patient: Coding Level of Care Code None Diagnoses Supraglottic mass J38.7
[2021-03-12] MEDS ORDERED: ceFAZolin 330 MG/ML 1 GM VIAL ONE (16:35)
[2021-03-12] MEDS ORDERED: ceFAZolin 2000MG 2,000 MG/15 ML SYR IV ONE (16:41)
--- NOTE | 2021-03-12 16:59 | Electrocardiogram Report ---
Test Reason : Blood Pressure : / mmHG Vent. Rate : 097 BPM Atrial Rate : 097 BPM P-R Int : 120 ms QRS Dur : 096 ms QT Int : 442 ms P-R-T Axes : 075 028 034 degrees QTc Int : 561 ms Poor data quality, interpretation may be adversely affected Normal sinus rhythm Possible Left atrial enlargement T wave abnormality, consider anterior ischemia Prolonged QT Abnormal ECG No previous ECGs available Confirmed by Wilver Plaza ([id number]) on 03/12/2021 4:59:06 PM Referred By: REFERRED SELF Confirmed By:Clemente Plaza
[2021-03-12] MEDS ORDERED: NEOSTIGMINE METHYLSULFATE 1 MG/ML 10ML VIAL ONE (17:27)
[2021-03-12] MEDS ORDERED: MIDAZOLAM HCL 5 MG/ML VIAL IV ONE (17:41)
[2021-03-12] MEDS ORDERED: GLYCOPYRROLATE 0.2 MG/ML VIAL IM ONE (17:41)
--- NOTE | 2021-03-12 18:03 | Anesthesiology Progress Note ---
Date of Service March 12, 2021 Anesthesia Post Procedure Vital Signs Vital Signs: Temp Pulse Pulse Resp BP BP Pulse Ox 03/12/21 18:00 75 16 122/73 96 03/12/21 17:55 74 17 119/70 96 03/12/21 17:50 71 16 112/68 97 03/12/21 17:45 98.4 F 74 16 104/70 99 03/12/21 17:42 74 13 107/64 100 03/12/21 17:41 100 03/12/21 15:45 110 H 17 174/105 H 99 03/12/21 15:40 118 H 19 03/12/21 15:35 103 H 20 99 03/12/21 15:32 104 H 21 130/95 96 03/12/21 15:31 106 H 20 130/95 99 03/12/21 15:30 107 H 22 129/107 H 98 03/12/21 15:25 122 H 31 H 94 03/12/21 15:21 115 H 24 182/88 H 99 03/12/21 15:20 113 H 24 99 03/12/21 15:15 96 H 40 H 182/88 H 97 03/12/21 15:10 94 H 95 H 26 H 179/102 H 99 03/12/21 15:05 94 H 94 H 24 97 03/12/21 15:00 94 H 36 H 179/102 H 94 03/12/21 14:45 94 H 25 H 180/101 H 98 03/12/21 14:40 96 H 30 H 98 03/12/21 14:30 98 H 24 158/109 H 97 Transfer of Care Handoff Completed per policy Notes Mental Status: alert / awake / arousable and participated in evaluation Patient Amnestic to Procedure: Yes Nausea / Vomiting: adequately controlled Pain: adequately controlled Airway Patency, RR, SpO2: stable & adequate BP & HR: stable & adequate Hydration State: stable & adequate Anesthetic Complications: no major complications apparent and Pt Satisfied with anesthetic care Notes: Patient transported to the ICU with O2 and monitor. Report was given to ICU team. Care was transferred to the ICU team.
[2021-03-12] MEDS ORDERED: ONDANSETRON INJ 2 MG/ML 2 ML VIAL IV PRN (18:20)
[2021-03-12 18:36] LABS: Hemoglobin 12.5 g/dL (14.0-18.0); Mean Corpuscular Hemoglobin 30.4 pg (25-34); Mean Corpuscular Hgb Conc 35.7 g/dL (32-36); Mean Corpuscular Volume 85.2 fL (80-100); Platelet Count 171 K/uL (130-400); RDW Coefficient of Variation 13.8 % (11.5-14.5); Red Blood Count 4.11 M/uL (4.7-6.1); White Blood Count 7.79 K/uL (4.8-10.8)
--- NOTE | 2021-03-12 18:39 | Operative Report ---
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 He was prepped with ChloraPrep. He was anesthetized using local anesthetic of 2% Xylocaine with 1-100,000 strength injection. The supra sternal incision was made using the 15 blade and carried down through the skin and subcutaneous layer using the 15 blade. Hemostasis was controlled using the Bovie. Midline dissection was performed. Thyroid isthmus was encountered. This was dissected free using the hemostat and then divided using the Bovie. The first tracheal ring was retracted superiorly. The stay suture was placed through the third tracheal ring using 2-0 Prolene. The incision was made between the second and the third tracheal ring and carried laterally and then vertically down both sides of the third drain. Trach tower climber was placed and a #8 cuffed Shiley tracheostomy tube was placed. After confirmation of tidal volume and CO2 general anesthesia was induced. At this point direct laryngoscopy was performed using the Dedo laryngoscope visualizing the epiglottis vallecula and piriform sinus areas which were all normal. There was a bulge from the right side of the larynx, smooth mucosal covered. However upon further exploration an ulcerative lesion was found in the right ventricle extending laterally into the right supraglottic space. 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 No evidence of subglottic mass. He was awakened and taken to the intensive care unit. I attest to the content of the Intraoperative Record and any orders documented therein. Any exceptions are noted below.
[2021-03-12 19:28] LABS: Albumin Globulin Ratio 1.3 (0.9-2); Albumin Level 3.2 gm/dl (3.4-5.0); BUN Creatinine Ratio 21.2 (10-20); Bilirubin,Total 0.4 mg/dl (0.2-1.0); Calcium 8.4 mg/dl (8.5-10.1); Creatinine Clr Calc Pharmacy 151.1 ml/min; Est GFR (African American) 134.3 ml/min; Est GFR (Non-African American) 115.9 ml/min; Globulin 2.5 gm/dl (2.5-4.0); Magnesium 1.5 mg/dl (1.7-2.4); Phosphorus 2.5 mg/dl (2.5-4.9); Potassium 3.2 mmol/L (3.5-5.1); Total Protein 5.7 gm/dl (6.0-8.3)
--- NOTE | 2021-03-12 20:03 | Critical Care Consultation ---
Date of Consultation March 12, 2021 Assessment & Plan (1) Acute airway obstruction: (2) Stridor: Reason Critically Ill: 60-year-old male with airway compromise secondary to subglottic mass requiring emergent tracheostomy placement for airway protection. NEURO - * CAM ICU: NEGATIVE CARDIAC/VASCULAR - * Blood pressure more maintained at this time. * Monitor on telemetry. RESPIRATORY - * Difficult airway with airway compromise secondary to subglottic mass: * Status post emergent tracheostomy placement. * Currently on CPAP settings. * Hope for ability to place on trach collar early tomorrow. GI/NUTRITION - * Will need swallow evaluation when appropriate. RENAL/LYTES - * Hyponatremia: * Question degree of hypovolemia, possible SIADH in the setting of CA * Initial slight improvement from 16-19. * Will start with gentle normal saline at a rate of 80 mL's per hour. * Serial PRPs to monitor rate of rise. Aim for increase of sodium 6-8 mmol/L over the first 24 hours. * Aim for slow correction to prevent ODS. - * Griffin in place - Strict I&Os. ENDO - * No h/o DM * BSGs per unit protocol. ISS --> gtt per unit policy. HEME - * Stable H&H ID - * No concerns for infection. LINES/IV ACCESS - * PIVs x2 * Griffin * Trach DVT PROPHYLAXIS - * Hold s/p trach placement. * SCDs I have personally spent 35 minutes of critical care time in the direct management of this patient. This is a life/limb threatening event. This includes time spent evaluating patient, direct bedside care, chart review, placing orders, interpretation of diagnostic studies, discussion with consultants, patient, and family members, as well as other required patient management activities. This time is exclusive of all separately billable procedures, and teaching time and separate from and in addition to any other critical care service time. Thank you for allowing us to participate in the care of this patient. Please refer to my attending physician's documentation for any further recommendations. History of Present Illness Attending Physician: Zuleika Ruiz MD History of Present Illness Patient is a 60-year-old male with an undocumented past medical history who is been struggling with stridor secondary to subglottic mass who presented to the emergency department with increasing stridor and concerns for airway compromise. The patient was scheduled to have a tracheostomy performed at the [facility] in [place] tomorrow, however he was having increasing difficulty with breathing so he elected to present to the outpatient [facility] office. He was seen and had increasing stridor so was directed to the emergency department for definitive management. On arrival, the patient was noted to be stridorous. ENT was consulted after anesthesia did visualize airway as pinpoint without possibility of passing ET tube. Patient was taken to the operating suite for awake tracheostomy tube placement. On evaluation in the ICU, the patient is awake, alert, and oriented. He is able to communicate with writing. He denies complaints of pain at this time. He does report that he has occasional coughing, but no chest discomfort. History limited secondary to do tracheostomy placement. 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 GENERAL - 60-year-old male appearing his stated age who is in no acute distress. Communicates with writing only. HEAD - NC/AT. EYES - PERRL with EOMI bilaterally. Sclera anicteric. Palpebral conjunctiva pink and moist with no injection noted. EARS - No deformities of external structures noted on gross examination bilaterally. NOSE - Midline and without cyanosis. No epistaxis or purulent drainage noted. NECK - New tracheostomy tube in place. FROM of the neck otherwise. LUNGS - Chest wall symmetric without accessory muscle use, intercostals retractions, or central cyanosis. Normal vesicular breath sounds CTA B/L. No wheezes, rales, or rhonchi appreciated. CARDIAC - RRR with S1/S2. No murmur, rubs, or gallops appreciated. No reproducible tenderness to palpation appreciated over the anterior chest wall. ABDOMEN - Abdominal contour flat without pulsations or visible masses. BS normoactive all four quadrants. No tenderness, palpable masses, hepatosplenomegaly, or ascites noted. EXTREMITIES - No clubbing or peripheral cyanosis. No pretibial edema present. +3/5 radial and dorsalis pedis pulses palpated throughout. +5/5 strength noted in UE/LE bilaterally. NEUROLOGIC - Cranial nerves II through XII grossly intact. PSYCH - A&Ox3 and cooperates fully with examiner. Able to communicate with writing. Results & Data Results & Data ([facility]) Vital Signs (Past 12 Hours) Vital Signs Temp Pulse Pulse Pulse Resp BP BP 03/12/21 19:00 36.7 C 78 80 17 131/86 131/86 03/12/21 18:55 78 18 144/91 H 03/12/21 18:50 78 15 137/90 03/12/21 18:40 80 17 135/90 03/12/21 18:30 78 18 03/12/21 18:20 36.9 C 76 19 119/77 03/12/21 18:15 36.9 C 76 17 123/77 03/12/21 18:10 76 17 121/74 03/12/21 18:05 76 19 120/75 03/12/21 18:00 75 16 122/73 03/12/21 17:55 74 17 119/70 03/12/21 17:50 71 16 112/68 03/12/21 17:45 36.9 C 74 16 104/70 03/12/21 17:42 74 13 107/64 03/12/21 17:41 03/12/21 15:45 110 H 17 174/105 H 03/12/21 15:40 118 H 19 03/12/21 15:35 103 H 20 03/12/21 15:32 104 H 21 130/95 03/12/21 15:31 106 H 20 130/95 03/12/21 15:30 107 H 22 129/107 H 03/12/21 15:25 122 H 31 H 03/12/21 15:21 115 H 24 182/88 H 03/12/21 15:20 113 H 24 03/12/21 15:15 96 H 40 H 182/88 H 03/12/21 15:10 94 H 95 H 26 H 179/102 H 03/12/21 15:05 94 H 94 H 24 03/12/21 15:00 94 H 36 H 179/102 H 03/12/21 14:45 94 H 25 H 180/101 H 03/12/21 14:40 96 H 30 H 03/12/21 14:30 98 H 24 158/109 H Pulse Ox 03/12/21 19:00 96 03/12/21 18:55 96 03/12/21 18:50 96 03/12/21 18:40 96 03/12/21 18:30 96 03/12/21 18:20 96 03/12/21 18:15 96 03/12/21 18:10 96 03/12/21 18:05 96 03/12/21 18:00 96 03/12/21 17:55 96 03/12/21 17:50 97 03/12/21 17:45 99 03/12/21 17:42 100 03/12/21 17:41 100 03/12/21 15:45 99 03/12/21 15:40 03/12/21 15:35 99 03/12/21 15:32 96 03/12/21 15:31 99 03/12/21 15:30 98 03/12/21 15:25 94 03/12/21 15:21 99 03/12/21 15:20 99 03/12/21 15:15 97 03/12/21 15:10 99 03/12/21 15:05 97 03/12/21 15:00 94 03/12/21 14:45 98 03/12/21 14:40 98 03/12/21 14:30 97 Coding Level of Care Code Critical Care 1st 30-74 mins Diagnoses Acute airway obstruction J98.8 Stridor R06.1 Time Spent (min) 35
[2021-03-12] MEDS ORDERED: MAGNESIUM SULFATE / D5W 1 GM/100 ML BAG IV ONE (20:04)
[2021-03-12] MEDS ORDERED: NSS + 20MEQ KCL 20 MEQ/1,000 ML BAG IV SCH (20:15)
[2021-03-12 23:58] LABS: BUN Creatinine Ratio 16.1 (10-20); Calcium 9.4 mg/dl (8.5-10.1); Creatinine Clr Calc Pharmacy 126.7 ml/min; Est GFR (Non-African American) 107.8 ml/min; Potassium 4.1 mmol/L (3.5-5.1)
[2021-03-13] MEDS ORDERED: DEXTROSE 5% 250 ML IV SCH (00:30)
[2021-03-13 00:56] LABS: Appearance Urine Clear (Clear); Bacteria Urine Automated Negative (Negative); Bilirubin Urine Negative (Negative); Blood Urine 3+ (Negative); Cast Urine Automated 0 /lpf (0-5); Color Urine Yellow; Epithelial Cell Urine Auto 0-5 /lpf (0-5); Glucose Urine UA Negative (Negative); Ketones Urine Trace (Negative); Leukocyte Esterase Urine Negative (Negative); Nitrite Urine Negative (Negative); Protein Urine Negative (Negative); RBC Urine Automated 0-4 /hpf (0-4); Specific Gravity Urine 1.003 (1.000-1.030); Urobilinogen Urine Negative (Negative); WBC Urine Automated 0 /hpf (0-5)
[2021-03-13] MEDS ORDERED: DESMOPRESSIN ACETATE 1 MCG in SYRINGE 0 ML IV SCH (01:00)
[2021-03-13 02:51] LABS: BUN Creatinine Ratio 13.7 (10-20); Calcium 9.4 mg/dl (8.5-10.1); Creatinine Clr Calc Pharmacy 107.6 ml/min; Est GFR (African American) 116.9 ml/min; Est GFR (Non-African American) 100.8 ml/min; Phosphorus 1.6 mg/dl (2.5-4.9); Potassium 3.9 mmol/L (3.5-5.1)
[2021-03-13] MEDS ORDERED: DEXTROSE 5% 500 ML IV SCH (04:15)
[2021-03-13] MEDS: DESMOPRESSIN ACETATE 2 MCG in SYRINGE 0 ML IV SCH ×2 (04:39→12:11)
[2021-03-13 06:21] LABS: Hematocrit (blood only) 37.2 % (42-52); Hemoglobin 13.1 g/dL (14.0-18.0); Mean Corpuscular Hemoglobin 30.3 pg (25-34); Mean Corpuscular Hgb Conc 35.2 g/dL (32-36); Mean Corpuscular Volume 85.9 fL (80-100); Mean Platelet Volume 10.4 fL (7.4-10.4); Platelet Count 179 K/uL (130-400); RDW Coefficient of Variation 14.2 % (11.5-14.5); RDW Standard Deviation 44.5 fL (36.4-46.3); Red Blood Count 4.33 M/uL (4.7-6.1); White Blood Count 9.31 K/uL (4.8-10.8)
[2021-03-13 06:48] LABS: BUN Creatinine Ratio 14.9 (10-20); Calcium 8.8 mg/dl (8.5-10.1); Creatinine Clr Calc Pharmacy 117.2 ml/min; Est GFR (Non-African American) 104.4 ml/min; Magnesium 1.8 mg/dl (1.7-2.4); Phosphorus 1.6 mg/dl (2.5-4.9); Potassium 4.1 mmol/L (3.5-5.1)
--- NOTE | 2021-03-13 13:25 | Hospitalist Progress Note ---
Date of Service March 13, 2021 Assessment & Plan (1) Supraglottic mass: Plan: Per report, has a large, known supraglottic mass with recommendation of elective tracheostomy in January. - Patient s/p tracheostomy 03/12/[address] Ruiz, recovered in ICU with some vent support now on blow by humidified trache collar Per the OR report "direct laryngoscopy was performed using the Dedo laryngoscope visualizing the epiglottis vallecula and piriform sinus areas which were all normal. There was a bulge from the right side of the larynx, smooth mucosal covered. However upon further exploration an ulcerative lesion was found in the right ventricle extending laterally into the right supraglottic space. 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 No evidence of subglottic mass." Pt states was not eating much solid food pre hospital, will have speech consult to determine if able to take po nutrition Initially the patient had decided he wanted to try chemotherapy and radiation according to his primary care provider at the [facility] however after discussions with speech and also myself the patient seems more convinced that he would wish to proceed with consideration of laryngectomy at [facility]. Reach back out to the [facility] clinic to try to coordinate a transfer of care in the meantime we will continue to stabilize the patient evaluate his swallowing function and replete his abnormal electrolytes (2) Hyponatremia: Plan: Chronic , will follow with hydration and feeding tubes phosphorus is low will replete with sodium phosphate (3) Bladder mass: Plan: According to the [facility] the patient reportedly has a bladder mass has not been yet worked up we will check a bladder urine cytology (4) DVT prophylaxis: Plan: SCDs - Heparin per ICU team once surgery is complete Admission and Anticipated Discharge Date Admission Date: March 12, 2021 Subjective pt is s/p tracheostomy, cannot speak and communicates by mouthing words and writing, now has desire to go to [facility] for possible laryngectomy, will be evaluated by speech here in the meantime to see if functioning swallowing Review of Systems Review of Systems: Mild to moderate distress and fatigue no headache, no visual changes Has not been able to swallow any other liquids for a few weeks prior to being ill no chest pain, pressure or palpitations Resolved shortness of breath from his tracheostomy now with some productive cough no abdominal pain, nausea or vomiting, diarrhea or constipation no dysuria, hematuria or frequency no focal joint pain or swelling no back pain, CVA tenderness or radicular pain no bruising, bleeding or rashes no focal signs of weakness or numbness or altered sensation no complaints of anxiety or depression.. Physical Exam Physical Exam: The patient appeared thin and chronically ill Vital signs as documented. Head exam is normocephalic atraumatic Neck is with tracheostomy in place with some mucus coming out of it Bilateral breath sounds worse at the bases Cardiac exam, Rhythm is regular.. No murmurs, rubs or gallops. Abdominal exam reveals normal bowel sounds, soft non tender, no masses Extremities are nonedematous and both pedal pulses are present Neurologic exam is alert and oriented, no focal loss of strength or sensation Skin is without bruises or rashes Psychologically is without concerns for anxiety or depression.. Results & Data Results & Data ([facility]) Vital Signs (Past 12 Hours) Vital Signs Temp Pulse Pulse Resp BP Pulse Ox 03/13/21 13:00 71 18 129/86 97 03/13/21 12:00 72 18 136/82 97 03/13/21 11:00 74 17 139/88 96 03/13/21 10:00 89 19 139/87 99 03/13/21 09:00 83 30 H 160/96 H 94 03/13/21 08:33 82 16 98 03/13/21 08:30 75 18 134/88 96 03/13/21 08:00 98.8 F 72 12 131/88 95 03/13/21 07:30 66 9 L 131/89 98 03/13/21 07:00 66 17 132/86 98 03/13/21 06:57 62 13 98 03/13/21 06:00 69 16 129/86 96 03/13/21 05:30 69 22 127/84 97 03/13/21 05:00 71 15 133/84 98 03/13/21 04:30 70 13 123/85 98 03/13/21 04:07 73 16 98 03/13/21 04:00 98.2 F 74 12 126/91 98 03/13/21 03:30 75 12 143/92 H 98 03/13/21 03:00 73 12 115/81 98 03/13/21 02:30 73 12 129/85 98 03/13/21 01:30 74 15 144/92 H 99 PG Care Time/CCT Total # of Minutes Spent Total Time Spent with Patient: Total time spent is greater than 50% in coordination of care (as documented) at patient's floor/unit and/or counseling patient: Coding Level of Care Code 75549 Subseq Hosp Care Lvl 2 Diagnoses Supraglottic mass J38.7 Hyponatremia E87.1 DVT prophylaxis Z29.9 Bladder mass N32.89
[2021-03-13] MEDS ORDERED: SODIUM PHOSPHATE 3 MMOL/1 ML INFUSION IV STA (13:37)
[2021-03-13] MEDS ORDERED: SODIUM PHOSPHATE 15 MMOL in DEXTROSE 5% 250 ML IV ONE (14:15)
[2021-03-13] MEDS ORDERED: MoRPHine SULFATE 2 MG/ML CARP IV PRN (15:22)
[2021-03-13] MEDS ORDERED: ONDANSETRON INJ 2 MG/ML 2 ML VIAL IV PRN (15:22)
[2021-03-13] MEDS ORDERED: LORazepam 0.5 MG/1 ML VIAL IV PRN (15:22)
--- NOTE | 2021-03-13 16:28 | Critical Care Progress Note ---
Date of Service March 13, 2021 Assessment & Plan (1) Acute airway obstruction: (2) Supraglottic mass: (3) Hyponatremia: Plan: Acute airway obstruction: Stridor: Reason Critically Ill: 60-year-old male with airway compromise secondary to subglottic mass requiring emergent tracheostomy placement for airway protection. NEURO - * CAM ICU: NEGATIVE CARDIAC/VASCULAR - * Blood pressure more maintained at this time. * Monitor on telemetry. RESPIRATORY - * Difficult airway with airway compromise secondary to subglottic mass: * * Status post emergent tracheostomy placement. * Currently on trach collar GI/NUTRITION - * Will need swallow evaluation when appropriate. RENAL/LYTES - * Hyponatremia: * Recheck sodium now - * Griffin in place - Strict I&Os. ENDO - * No h/o DM * * BSGs per unit protocol. ISS --> gtt per unit policy. HEME - * Stable H&H ID - * No concerns for infection. LINES/IV ACCESS - * PIVs x2 * Griffin * Trach DVT PROPHYLAXIS - * Hold s/p trach placement. * SCDs Ok to transfer out of the icu Admission and Anticipated Discharge Date Admission Date: March 12, 2021 Subjective No significant events this morning. Tolerating tracheostomy well. Currently on trach collar trials. Review of Systems Review of Systems: All systems reviewed & are unremarkable except as noted in HPI & below Physical Exam Physical Exam: VITAL SIGNS - Vital signs and nursing notes were reviewed. GENERAL - 60-year-old male appearing his stated age who is in no acute distress. Communicates with writing only. HEAD - NC/AT. EYES - PERRL with EOMI bilaterally. Sclera anicteric. Palpebral conjunctiva pink and moist with no injection noted. EARS - No deformities of external structures noted on gross examination bilaterally. NOSE - Midline and without cyanosis. No epistaxis or purulent drainage noted. NECK - New tracheostomy tube in place. FROM of the neck otherwise. LUNGS - Chest wall symmetric without accessory muscle use, intercostals retractions, or central cyanosis. Normal vesicular breath sounds CTA B/L. No wheezes, rales, or rhonchi appreciated. CARDIAC - RRR with S1/S2. No murmur, rubs, or gallops appreciated. No reproducible tenderness to palpation appreciated over the anterior chest wall. ABDOMEN - Abdominal contour flat without pulsations or visible masses. BS normoactive all four quadrants. No tenderness, palpable masses, hepatosplenomegaly, or ascites noted. EXTREMITIES - No clubbing or peripheral cyanosis. No pretibial edema present. +3/5 radial and dorsalis pedis pulses palpated throughout. +5/5 strength noted in UE/LE bilaterally. NEUROLOGIC - Cranial nerves II through XII grossly intact. PSYCH - A&Ox3 and cooperates fully with examiner. Able to communicate with writing. Results & Data Results & Data ([facility]) Vital Signs (Past 12 Hours) Vital Signs Temp Pulse Pulse Resp BP Pulse Ox 03/13/21 15:08 37.0 C 03/13/21 15:05 80 16 150/80 H 98 03/13/21 15:00 83 22 03/13/21 14:00 80 19 132/79 94 03/13/21 13:00 71 18 129/86 97 03/13/21 12:00 72 18 136/82 97 03/13/21 11:00 74 17 139/88 96 03/13/21 10:00 89 19 139/87 99 03/13/21 09:00 83 30 H 160/96 H 94 03/13/21 08:33 82 16 98 03/13/21 08:30 75 18 134/88 96 03/13/21 08:00 37.1 C 72 12 131/88 95 03/13/21 07:30 66 9 L 131/89 98 03/13/21 07:00 66 17 132/86 98 03/13/21 06:57 62 13 98 03/13/21 06:00 69 16 129/86 96 03/13/21 05:30 69 22 127/84 97 03/13/21 05:00 71 15 133/84 98 03/13/21 04:30 70 13 123/85 98 Coding Level of Care Code 37765 Subseq Hosp Care Lvl 2 Diagnoses Acute airway obstruction J98.8 Supraglottic mass J38.7 Hyponatremia E87.1
[2021-03-13 17:10] LABS: BUN Creatinine Ratio 14.3 (10-20); Calcium 9.3 mg/dl (8.5-10.1); Creatinine Clr Calc Pharmacy 112.2 ml/min; Est GFR (African American) 118.9 ml/min; Est GFR (Non-African American) 102.6 ml/min; Potassium 3.4 mmol/L (3.5-5.1)
--- NOTE | 2021-03-13 17:34 | Ears,Nose,Throat Progress Note ---
Date of Service March 13, 2021 Assessment & Plan (1) Acute airway obstruction: Plan: Trach in place, stable. Medical management appreciated. Admission and Anticipated Discharge Date Admission Date: March 12, 2021 Subjective Awake alert. Responsive. Cannot speak due to trach. Communicates by writing. Physical Exam Neck: Trach in place in good position. Trach collar in place. Results & Data ([facility]) Vital Signs (Past 12 Hours) Vital Signs Temp Pulse Pulse Resp BP Pulse Ox 03/13/21 15:08 37.0 C 03/13/21 15:05 80 16 150/80 H 98 03/13/21 15:00 83 22 03/13/21 14:00 80 19 132/79 94 03/13/21 13:00 71 18 129/86 97 03/13/21 12:00 72 18 136/82 97 03/13/21 11:00 74 17 139/88 96 03/13/21 10:00 89 19 139/87 99 03/13/21 09:00 83 30 H 160/96 H 94 03/13/21 08:33 82 16 98 03/13/21 08:30 75 18 134/88 96 03/13/21 08:00 37.1 C 72 12 131/88 95 03/13/21 07:30 66 9 L 131/89 98 03/13/21 07:00 66 17 132/86 98 03/13/21 06:57 62 13 98 03/13/21 06:00 69 16 129/86 96
[2021-03-14 06:05] LABS: BUN Creatinine Ratio 11.7 (10-20); Calcium 9.1 mg/dl (8.5-10.1); Est GFR (African American) 114.3 ml/min; Est GFR (Non-African American) 98.6 ml/min; Magnesium 1.9 mg/dl (1.7-2.4); Potassium 4.1 mmol/L (3.5-5.1)
--- NOTE | 2021-03-14 13:37 | Fluoroscopy Report ---
FL video swallow CLINICAL HISTORY: 60 years-old Male with r/o aspiration. Soft tissue mass of the airway TECHNIQUE: Video fluoroscopic evaluation of swallowing was performed in the AP and lateral projection s by the speech pathology staff. The patient is fed thin liquid barium, pudding and cracker with past e consistencies. FLUOROSCOPY TIME: 1.4 minutes. COMPARISON STUDY: Soft tissue neck radiographs 03/12/2021 FINDINGS: A tracheostomy cannula is in place. Partially imaged cervical spinal fusion hardware. Ill-d efined soft tissue mass centered within the region of the thyroid cartilage causes mild mass effect u delgado the volar aspect of the upper esophageal sphincter. There is laryngeal penetration with mild aspi ration with thin liquid barium. Pudding and solid consistencies demonstrated normal swallowing. IMPRESSION: 1. Soft tissue mass within the region of the thyroid cartilage causes mild mass effect upon the proxi mal esophagus. There is trace aspiration with thin liquid barium. 2. Please see the speech pathologist report for detailed findings and recommendations. ACT 112: Negative or not required by law. Electronically signed by: Kana Crooks M.D. 03/14/2021 1:36 PM
--- NOTE | 2021-03-14 15:02 | Discharge Summary ---
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 neck has new tracheostomy in place with white yellow mucus Lungs are clear but diminshed at bases Cardiac exam, Rhythm is regular.. No murmurs, rubs or gallops. Neurologic exam is alert and oriented, no focal loss of strength or sensation cannot speak now with trach Discharge Data Allergies Allergy/AdvReac Type Severity Reaction Status Date / Time No Known Allergies Allergy Verified 04/01/02 18:24 Consultations 03/12/21 16:18 ED Decision to Admit Stat 03/12/21 18:20 Consult Bicycle Service Technician Routine Consult Otolaryngology (Head and Neck) Routine Procedures Performed Operation Date: 03/12/21 12:30 Actual Procedures p Tracheostomy with Direct Laryngoscopy (Not Applicable) - Zuleika Ruiz MD Ordered Studies 03/14/21 13:15 FL video swallow Routine Soft tissue mass within the region of the thyroid cartilage causes mild mass effect upon the proximal esophagus. There is trace aspiration with thin liquid barium. Mild to moderate oropharyngeal dysphagia in the setting of head neck cancer patient tracheal aspiration occurred during study. Recommend EGD to IDD S1 7 diet aspiration precautions including oral hygiene AC at bedtime carrier vehicle being applesauce or pudding recommend ENGRAVER [employer]PERPLATE at [facility] prior to his laryngectomy to establish rapport and get education how his swelling between [place] may be addressed post laryngectomy Hospital Course (1) Supraglottic mass: Per report, has a large, known supraglottic mass with recommendation of elective tracheostomy in January. - Patient s/p tracheostomy 03/12/[address] Ruiz, recovered in ICU with some vent support now on blow by humidified trache collar Per the OR report "direct laryngoscopy was performed using the Dedo laryngoscope visualizing the epiglottis vallecula and piriform sinus areas which were all normal. There was a bulge from the right side of the larynx, smooth mucosal covered. However upon further exploration an ulcerative lesion was found in the right ventricle extending laterally into the right supraglottic space. 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 No evidence of subglottic mass." Pt states was not eating much solid food pre hospital, speech consult feels patient may take an easy to chew and swallow diet with applesauce or pudding to move his pills however discussion with speech-language pathology at the [facility] will be required to assure this will continue to be the case Initially the patient had decided he wanted to try chemotherapy and radiation according to his primary care provider at the [facility] however after discussions with speech and also myself the patient seems more convinced that he would wish to proceed with consideration of laryngectomy at [facility]. Patient states he now wants to get this out of his body. I spoke with the [facility] in [place] and gave verbal report to Dr. Sandoval the ICU. [facility] policy is new tracheostomy should be in the ICU. Transportation is being arranged at 10 at 5 PM 03/14/2021 (2) Hyponatremia: Chronic , will follow with hydration, phosphorus is low replete with sodium phosphate (3) Bladder mass: According to the [facility] the patient reportedly has a bladder mass has not been yet worked up we will check a bladder urine cytology Total Time Total Time Spent Total Time Spent (In Minutes): It required greater than 30 minutes to prepare this patient for discharge Discharge Plan Discharge Items Patient Disposition: Transfer [facility] Reason For Visit: SUPRAGLOTIC MASS, STRIDOR Discharge Diagnosis: mass in larnyx, supraglottic, stridor s/p emergent tracheostomy Activity: Per Instructions section Activity Comment: per instructions at [facility] Non-emergency contact: Primary Care Provider and Specialist Call non-emergency contact if: your symptoms worsen and you have a fever Follow-up/Referrals: [facility]ospital [Primary Care Provider] - Diet: Nothing by Mouth Addtl Attending Provider Instructions: please send on humidified trach collar and suction as needed Pending Studies at Discharge: Yes (final pathology report) Stand-Alone Forms: My [facility] Skilled Items Patient informed of condition?: Yes DNR: No Discharge Level of Care: Other Communicable Disease: No Discharge Prognosis: Stable Lines: Peripheral IV Urinary Catheter: No Medications and DC Order Discharge Orders: Discharge Order (Routine); Ordered 03/14/21 Ordered By: Aníbal Cardenas Admission Data Admit Date/Time: 03/12/21 15:52 Attending Provider: Aníbal Cardenas Admit Provider: Jose Rodríguez Primary Care Provider: [facility] Other Providers: [facility] ; Jose Rodríguez ; Henry Coats ; Zuleika Ruiz How Other Interventions: Discharge Summary Assessment (RN) Last Done: 03/14/21 15:19 Coding Level of Care Code D/C DAY MANAGEMENT >30 MINS Diagnoses Supraglottic mass J38.7 Hyponatremia E87.1 Bladder mass N32.89
[2021-03-20 19:52] LABS: Sodium 116 mmol/L (136-145)
== END 2021-03-14 17:42 | DRG 12 ==
LOC: ED 14:18 → OR 15:50 → SUATTDRO 15:52 → 1E 15:52
PROC: M.TRACH (2021-03-12 12:30)